=== PATIENT | male | born 1950 | race Caucasian/White ===

== ENCOUNTER → 2019-01-13 | Day surgery (SDC) | payer MEDICARE ==
[~2019-01-13] VITALS: Ht 167.6 cm; Wt 70.8 kg
[~2019-01-13] MED LIST: LIDOCAINE 1% INJ 20 ML 20 ML VIAL ONE
--- OUTSIDE RECORDS SUMMARY | 2019-01-13 12:57 | XMS REPORT | CCD ---
Author Author KRYSTIN HERNANDEZ Unknown Address [address] [facility] [address] [place] [address] Care Team Providers Care Rubber Curer Name Role Phone CHANDA BENZ, JENIFER Mandujano Attphys CHANDA BENZ, JENIFER Mandujano Prisurg Allergies Allergy Code Allergy Type Reaction Status SULFA (sulfonamide) 0 Drug allergy Active Active Medications Medication Code Dose Units Frequency Route Modification Start Date/Time Januvia 25MG Oral Tablet 049953 1 TABLET BY MOUTH 04/13/2018 09:42 Prescription Detail 1 TABLET BY MOUTH Acetaminophen 650MG Oral Tablet [id number] 650 MILLIGRAMS NEEDED EVERY 4 HR ORAL 04/13/2018 09 :40 Prescription Detail 650 MILLIGRAMS ORAL NEEDED EVERY 4 HR amLODIPine Besylate 5MG Oral Tablet 458388 10 MILLIGRAMS DAILY BY MOUTH 04/13/2018 09:40 Prescription Detail 10 MILLIGRAMS BY MOUTH DAILY Aspirin 81MG Oral Tablet, Enteric Coated 768821 81 MILLIGRAMS DAILY ORAL 04/13/2018 09:40 Prescription Detail 81 MILLIGRAMS ORAL DAILY Coreg 6.25MG Oral Tablet 776604 6.25 MILLIGRAMS TWO TIMES A DAY ORAL 04/13/2018 09:40 Prescription Detail 6.25 MILLIGRAMS ORAL TWO TIMES A DAY Daily Multivitamin Oral Tablet 2482038 1 EACH DAILY ORAL 04/13/2018 09:40 Prescription Detail 1 EACH ORAL DAILY Iron 27 MG Oral Tablet 158338 27 MG DAILY ORAL 04/13/2018 09:40 Prescription Detail 27 MG ORAL DAILY Lasix 80MG Oral Tablet 220740 80 MILLIGRAMS DAILY ORAL 04/13/2018 09:40 Prescription Detail 80 MILLIGRAMS ORAL DAILY Lipitor 80MG Oral Tablet 206889 80 MILLIGRAMS DAILY ORAL 04/13/2018 09:40 Prescription Detail 80 MILLIGRAMS ORAL DAILY Lyrica 75MG Oral Capsule 073851 75 MILLIGRAMS DAILY BY MOUTH 04/13/2018 09:40 Prescription Detail 75 MILLIGRAMS BY MOUTH DAILY Lovilia 5MG-325MG Oral Tablet 093111 1 EACH NEEDED EVERY 12 H ORAL 04/13/2018 09:40 Prescription Detail 1 EACH ORAL NEEDED EVERY 12 H PhosLo 667MG Oral Capsule 827401 2755 MILLIGRAMS BEFORE EACH MEAL ORAL 04/13/2018 09:40 Prescription Detail 1334 MILLIGRAMS ORAL BEFORE EACH MEAL Protonix 40MG Oral Tablet, Enteric Coated 024292 40 MILLIGRAMS TWO TIMES A DAY BY MOUTH 04/13/2018 09: 40 Prescription Detail 40 MILLIGRAMS BY MOUTH TWO TIMES A DAY Problems Problem Code Start Date Resolved Date Status Weakness in extremity 172196771 04/06/2018 Active CVA 701122790 12/29/2016 Active Seizures 36016471 12/29/2016 Active Diabetes 58002080 12/30/2016 Active Procedures Procedure Code Procedure Type Date ^CBC W/AUTO DIFF 0250091 SNOMED CT 07/01/2017 COMPREHENSIVE METABOLIC PANEL 352831125 SNOMED CT 2016 CBC W/ AUTO DIFF (RFLX MAN DIFF IF IND) 5312892 SNOMED CT 07/01/2017 BEDSIDE GLUCOSE 80273635 SNOMED CT 07/01/2017 Results BEDSIDE GLUCOSE - Collect Date/Time: 07/01/2017 15:16 Test Name Code Test Result Test Units Test Ref Range GLUCOSE POCT 347 MG/DL L=70 H=100 COMPREHENSIVE METABOLIC PANEL - Collect Date/Time: 07/01/2017 16:00 Test Name Code Test Result Test Units Test Ref Range GLUCOSE 2345-7 398 MG/DL L=70 H=100 SODIUM 2951-2 139 MEQ/L L=135 H=148 POTASSIUM 2823-3 3.6 MEQ/L L=3.5 H=5.3 CHLORIDE 2075-0 103 MEQ/L L=96 H=110 CO2 2028-9 29 MEQ/L L=22 H=29 BUN 3094-0 29 MG/DL L=8 H=22 CREATININE 2160-0 1.4 MG/DL L=0.6 H=1.6 SGOT/AST 1920-8 15 IU/L L=10 H=40 SGPT/ALT 1742-6 15 IU/L L=8 H=54 ALK PHOS 6768-6 120 IU/L L=35 H=115 TOTAL PROTEIN 2885-2 5.8 G/DL L=5.5 H=8.5 ALBUMIN 1751-7 2.4 G/DL L=3.1 H=5.4 TOTAL BILI 1975-2 <0.3 MG/DL L=0.0 H=1.5 CALCIUM 36952-6 8.8 MG/DL L=8.2 H=10.6 AGE 67 yrs GFR NonAA 51 GFR AA 62 eGFR 51 mL/min/1.7 eGFR AA* >60 N/A CBC W/ AUTO DIFF (RFLX MAN DIFF IF IND) - Collect Date/Time: 07/01/2017 16:00 Test Name Code Test Result Test Units Test Ref Range WBC 02273-3 8.7 TH/CMM L=4.5 H=10.8 RBC 789-8 4.63 ML/CMM L=4.70 H=6.10 HGB 718-7 13.2 G/DL L=14.0 H=18.0 HCT 4544-3 38.8 % L=42.0 H=52.0 MCV 84 FL L=81 H=99 MCH 28.5 PG L=27.0 H=33.0 MCHC 34.0 G/DL L=31.0 H=36.0 RDW SD 38 FL L=36 H=50 RDW CV 12.8 % L=0.0 H=14.8 MPV 9.9 FL L=9.3 H=12.5 PLT 777-3 331 TH/CMM L=130 H=440 NRBC# 0.00 TH/CMM L=0.00 H=0.00 NRBC% 0.0 /100WBC L=0.0 H=2.0 %NEUT 69.3 % %LYMP 22.5 % %MONO 5.3 % %EOS 1.5 % %BASO 1.1 % #NEUT 6.02 TH/CMM L=2.10 H=8.20 #LYMP 1.96 TH/CMM L=0.90 H=5.20 #MONO 0.46 TH/CMM L=0.16 H=1.00 #EOS 0.13 TH/CMM L=0.00 H=0.80 #BASO 0.10 TH/CMM L=0.00 H=0.20 MANUAL DIFF NOT IND N/A Function Status Unknown or Not Available. History of Immunizations Immunization Code Date pneumococcal polysaccharide PPV23 33 01/07/2018 Plan of Treatment Unknown or Not Available. Social History Smoking Status Code Start Date End Date Current every day smoker [id number] Vital Signs Unknown or Not Available. Function Status Unknown or Not Available. Goals Unknown or Not Available. ASSESSMENTS Unknown or Not Available. Health Concerns Section Unknown or Not Available.
--- OUTSIDE RECORDS SUMMARY | 2019-01-13 12:57 | XMS REPORT | CCD ---
Author Author FRIEDA DOWNS Unknown Address [address] [place] [address] Care Team Providers Care Leadership Development Instructor Name Role Phone NACHO Zapata, STEPHAN FLORES Attphys KRISTOFER ROCHA, CELSA BENZ Prisukary S., MIL Greer NASST A., KEMI NASST F., JENIFER NASST S., AUSTIN Grossman NASST A., DELBERT FELIX NASST H., DANISH NASST T., PAT NASST Allergies Allergy Code Allergy Type Reaction Status SULFA (sulfonamide) 0 Drug allergy Active Active Medications Medication Code Dose Units Frequency Route Modification Start Date/Time Aspirin 325MG Oral Tablet, Enteric Coated 674906 325 MILLIGRAMS DAILY WITH A MEAL BY MOUTH 12/30/2016 15:13 Prescription Detail 325 MILLIGRAMS BY MOUTH DAILY WITH A MEAL Atorvastatin Calcium 20MG Oral Tablet 526462 80 MILLIGRAMS BEDTIME BY MOUTH 12/30/2016 15:13 Prescription Detail 80 MILLIGRAMS BY MOUTH BEDTIME Lisinopril 10MG Oral Tablet 404659 10 MILLIGRAMS DAILY BY MOUTH 12/30/2016 15:13 Prescription Detail 10 MILLIGRAMS BY MOUTH DAILY metFORMIN HCl 1000MG Oral Tablet 183693 5502 MILLIGRAMS TWO TIMES A DAY ORAL 12/30/2016 15:13 Prescription Detail 1000 MILLIGRAMS ORAL TWO TIMES A DAY Problems Problem Code Start Date Resolved Date Status CVA 570158942 12/29/2016 Active Seizures 94385353 12/29/2016 Active Diabetes 88474974 12/30/2016 Active Procedures Procedure Code Procedure Type Date MRI BRAIN INC STEM W/O CONTRAST 42270057 SNOMED CT 2016 US ECHO 2D COMP WITH DOPP AND COLOR 32670831 [facility] US CAROTID DUPLEX COMP/TONYA 02333990 [facility] CT 12/30/2016 CT HEAD W/O CONTRAST 650445206 [facility] CT 12/29/2016 BEDSIDE GLUCOSE 50487710 [facility] CT 12/30/2016 LIPID PANEL 81669116 [facility] CT 12/30/2016 HEMOGLOBIN A1C 44318066 [facility] CT 12/30/2016 COMPREHENSIVE METABOLIC PANEL 108496778 [facility] 2016 CBC W/ AUTO DIFF (RFLX MAN DIFF IF IND) 6971903 [facility] CT 12/30/2016 BEDSIDE GLUCOSE 52079986 [facility] CT 12/30/2016 TROPONIN-I ADV 229309689 [facility] CT 12/29/2016 COMPREHENSIVE METABOLIC PANEL 050956155 [facility] CT 2016 CBC W/ AUTO DIFF (RFLX MAN DIFF IF IND) 2555546 [facility] CT 12/29/2016 SP EVALUATE SWALLOWING FUNCTION 796923936 [facility] CT 2016 PT EVALUATION; LOW [id number] [facility] CT 12/30/2016 OT EVAL; LOW [id number] [facility] CT 12/30/2016 ^CBC W/AUTO DIFF 4397294 [facility] CT 12/30/2016 ^CBC W/AUTO DIFF 8662880 [facility] CT 12/29/2016 ^EEG AWAKE & DROWSY [id number] [facility] CT 12/30/2016 Results BEDSIDE GLUCOSE - Collect Date/Time: 12/30/2016 12:07 Test Name Code Test Result Test Units Test Ref Range GLUCOSE POCT 243 MG/DL L=70 H=100 BEDSIDE GLUCOSE - Collect Date/Time: 12/30/2016 05:30 Test Name Code Test Result Test Units Test Ref Range GLUCOSE POCT 221 MG/DL L=70 H=100 COMPREHENSIVE METABOLIC PANEL - Collect Date/Time: 12/30/2016 12:15 Test Name Code Test Result Test Units Test Ref Range GLUCOSE 2345-7 224 MG/DL L=70 H=100 SODIUM 2951-2 136 MEQ/L L=135 H=148 POTASSIUM 2823-3 4.0 MEQ/L L=3.5 H=5.3 CHLORIDE 2075-0 103 MEQ/L L=96 H=110 CO2 2028-9 24 MEQ/L L=22 H=29 BUN 3094-0 37 MG/DL L=8 H=22 CREATININE 2160-0 1.1 MG/DL L=0.6 H=1.6 SGOT/AST 1920-8 15 IU/L L=10 H=40 SGPT/ALT 1742-6 15 IU/L L=8 H=54 ALK PHOS 6768-6 122 IU/L L=35 H=115 TOTAL PROTEIN 2885-2 6.2 G/DL L=5.5 H=8.5 ALBUMIN 1751-7 2.7 G/DL L=3.1 H=5.4 TOTAL BILI 1975-2 0.2 MG/DL L=0.0 H=1.5 CALCIUM 02063-4 9.0 MG/DL L=8.2 H=10.6 AGE [birth year]-[age] yrs GFR NonAA 45821-7 67 [place] [address]-3 81 eGFR 32340-1 >60 N/A eGFR AA* 37457-3 >60 N/A COMPREHENSIVE METABOLIC PANEL - Collect Date/Time: 12/29/2016 19:15 Test Name Code Test Result Test Units Test Ref Range GLUCOSE 2345-7 246 MG/DL L=70 H=100 SODIUM 2951-2 136 MEQ/L L=135 H=148 POTASSIUM 2823-3 4.2 MEQ/L L=3.5 H=5.3 CHLORIDE 2075-0 99 MEQ/L L=96 H=110 CO2 2028-9 24 MEQ/L L=22 H=29 BUN 3094-0 47 MG/DL L=8 H=22 CREATININE 2160-0 1.5 MG/DL L=0.6 H=1.6 SGOT/AST 1920-8 13 IU/L L=10 H=40 SGPT/ALT 1742-6 15 IU/L L=8 H=54 ALK PHOS 6768-6 103 IU/L L=35 H=115 TOTAL PROTEIN 2885-2 6.3 G/DL L=5.5 H=8.5 ALBUMIN 1751-7 2.9 G/DL L=3.1 H=5.4 TOTAL BILI 1975-2 0.2 MG/DL L=0.0 H=1.5 CALCIUM 46921-1 9.1 MG/DL L=8.2 H=10.6 AGE 66 yrs GFR NonAA 47 GFR AA 57 eGFR 47 mL/min/1.7 eGFR AA* 57 mL/min/1.7 LIPID PANEL - Collect Date/Time: 12/30/2016 12:15 Test Name Code Test Result Test Units Test Ref Range TRIGLYCERIDES 3043-7 385 MG/DL L=0 H=135 CHOLESTEROL 2093-3 219 MG/DL L=0 H=199 HDL 2085-9 37 MG/DL L=27 H=67 TOT CHOL/HDL 52501-3 5.9 L=0.0 H=5.0 LDL (CALC) 61419-1 105 MG/DL L=0 H=129 CBC W/ AUTO DIFF (RFLX MAN DIFF IF IND) - Collect Date/Time: 12/30/2016 12:15 Test Name Code Test Result Test Units Test Ref Range WBC 14254-4 7.9 TH/CMM L=4.5 H=10.8 RBC 789-8 4.65 ML/CMM L=4.70 H=6.10 HGB 718-7 13.6 G/DL L=14.0 H=18.0 HCT 4544-3 40.8 % L=42.0 H=52.0 MCV 69525-0 88 FL L=81 H=99 MCH 74877-3 29.2 PG L=27.0 H=33.0 MCHC 17776-6 33.3 G/DL L=31.0 H=36[place] [address]-3 40 FL L=36 H=50 [place] [address]-4 12.4 % L=0.0 H=14.8 MPV 18349-0 9.7 FL L=9.3 H=12.5 PLT 777-3 380 TH/CMM L=130 H=440 NRBC# 09066-9 0.00 TH/CMM L=0.00 H=0.00 NRBC% 04392-2 0.0 /100WBC L=0.0 H=2.0 %NEUT 66140-6 67.7 % %LYMP 85056-5 25.1 % %MONO 96030-3 4.1 % %EOS 48057-0 1.6 % %BASO 60275-2 1.0 % #NEUT 77396-3 5.34 TH/CMM L=2.10 H=8.20 #LYMP 86501-8 1.98 TH/CMM L=0.90 H=5.20 #MONO 93069-2 0.32 TH/CMM L=0.16 H=1.00 #EOS 61064-9 0.13 TH/CMM L=0.00 H=0.80 #BASO 94042-6 0.08 TH/CMM L=0.00 H=0.20 MANUAL DIFF 05597-7 NOT IND N/A CBC W/ AUTO DIFF (RFLX MAN DIFF IF IND) - Collect Date/Time: 12/29/2016 19:15 Test Name Code Test Result Test Units Test Ref Range WBC 83326-8 10.7 TH/CMM L=4.5 H=10.8 RBC 789-8 4.83 ML/CMM L=4.70 H=6.10 HGB 718-7 14.0 G/DL L=14.0 H=18.0 HCT 4544-3 41.6 % L=42.0 H=52.0 MCV 86 FL L=81 H=99 MCH 29.0 PG L=27.0 H=33.0 MCHC 33.7 G/DL L=31.0 H=36.0 RDW SD 39 FL L=36 H=50 RDW CV 12.5 % L=0.0 H=14.8 MPV 9.9 FL L=9.3 H=12.5 PLT 777-3 402 TH/CMM L=130 H=440 NRBC# 0.00 TH/CMM L=0.00 H=0.00 NRBC% 0.0 /100WBC L=0.0 H=2.0 %NEUT 65.8 % %LYMP 26.5 % %MONO 5.0 % %EOS 1.5 % %BASO 0.7 % #NEUT 7.04 TH/CMM L=2.10 H=8.20 #LYMP 2.83 TH/CMM L=0.90 H=5.20 #MONO 0.53 TH/CMM L=0.16 H=1.00 #EOS 0.16 TH/CMM L=0.00 H=0.80 #BASO 0.07 TH/CMM L=0.00 H=0.20 MANUAL DIFF NOT IND N/A PT/PTT - Collect Date/Time: 12/29/2016 19:15 Test Name Code Test Result Test Units Test Ref Range PROTIME 5964-2 10.0 SEC L=9.9 H=11.9 INR 98554-4 0.9 PTT 3173-2 26.0 SEC L=22.2 H=37.2 HEMOGLOBIN A1C - Collect Date/Time: 12/30/2016 12:15 Test Name Code Test Result Test Units Test Ref Range HGB A1C 77940-7 >14.0 % L=4.0 H=6.4 Est Avg Glucose 94815-1 395.3 mg/dL TROPONIN-I ADV - Collect Date/Time: 12/29/2016 19:15 Test Name Code Test Result Test Units [place] [address]-4 <0.04 ng/mL L=0.04 H= 0.40 Function Status Unknown or Not Available. History of Immunizations Unknown or Not Available. Plan of Treatment Unknown or Not Available. Social History Smoking Status Code Start Date End Date Current every day smoker 413016918 Vital Signs Vital Sign Value Unit Date/Time Recent/Initial? BMI (Body Mass Index) 21.92 kg/m2 12/29/2016 21:15 Initial VS Weight Measured 135.8 [lb_av] 12/29/2016 21:15 Initial VS Height 66 [in_i] 12/29/2016 21:15 Initial VS BSA (Body Surface Area) 1.69 m2 12/29/2016 21:15 Initial VS BP Systolic 157 mm[Hg] 12/29/2016 21:15 Initial VS BP Diastolic 85 mm[Hg] 12/29/2016 21:15 Initial VS Respiratory Rate 18 /min 12/29/2016 21:15 Initial VS Heart Rate 94 /min 12/29/2016 21:15 Initial VS O2 % BldC Oximetry 100 % 12/29/2016 21:15 Initial VS Body Temperature 97.2 [degF] 12/29/2016 21:15 Initial VS BP Systolic 143 mm[Hg] 12/30/2016 10:54 Most Recent VS BP Diastolic 83 mm[Hg] 12/30/2016 10:54 Most Recent VS Respiratory Rate 18 /min 12/30/2016 10:54 Most Recent VS Heart Rate 87 /min 12/30/2016 10:54 Most Recent VS O2 % BldC Oximetry 99 % 12/30/2016 10:54 Most Recent VS Body Temperature 96.9 [degF] 12/30/2016 10:54 Most Recent VS Function Status Unknown or Not Available. Goals Unknown or Not Available. ASSESSMENTS Unknown or Not Available. Health Concerns Section Unknown or Not Available.
--- OUTSIDE RECORDS SUMMARY | 2019-01-13 12:58 | XMS REPORT ---
Author Author Dusty Hill [facility] Address [address] [place] [id number] Care Team Providers Care Mushroom Cutter Name Role Phone Dusty Hill PCP Dusty Hill PreferredProvider Allergies and Adverse Reactions Name Reaction Notes SULFA (SULFONAMIDES) Plan of Treatment Planned Activity Comments Planned Date Planned Time Plan/Goal CMP 04/19/2018 12:00 AM Vitamin B12 04/19/2018 12:00 AM Iron measurement 04/19/2018 12:00 AM Chest PA and Lateral - Main 12/15/2018 12:00 AM Medications Active Name Start Date Estimated Completion Date SIG Comments PhosLo oral give 1334mg by mouth w/meals for NA aspirin 81 mg oral tablet,delayed release (DR/EC) take 1 tablet (81 mg) by oral route once daily Humalog U-100 Insulin 100 unit/mL subcutaneous solution 05/19/2018 USE PER SLIDING SCALE ferrous gluconate 236 mg (27 mg iron) oral tablet take 1 tablet by oral route daily bumetanide 2 mg oral tablet 07/13/2018 TAKE 1 TABLET BY MOUTH THREE TIMES DAILY metolazone 5 mg oral tablet 07/13/2018 TAKE 1 TABLET BY MOUTH EVERY MORNING calcium acetate 667 mg oral tablet 09/03/2018 TAKE 2 TABLETS BY MOUTH THREE TIMES DAILY WITH MEALS atorvastatin 80 mg oral tablet 09/03/2018 TAKE 1 TABLET BY MOUTH AT BEDTIME carvedilol 25 mg oral tablet 09/03/2018 TAKE 1 TABLET BY MOUTH TWICE DAILY atorvastatin 40 mg oral tablet 09/24/2018 TAKE 1 TABLET BY MOUTH AT BEDTIME citalopram 10 mg oral tablet 09/24/2018 TAKE 1 TABLET BY MOUTH IN THE MORNING clopidogrel 75 mg oral tablet 09/24/2018 TAKE 1 TABLET BY MOUTH IN THE MORNING amlodipine 2.5 mg oral tablet 09/24/2018 TAKE 1 TABLET BY MOUTH EVERY MORNING pantoprazole 40 mg oral tablet,delayed release (DR/EC) 09/24/2018 TAKE 1 TABLET BY MOUTH TWICE DAILY Januvia 50 mg oral tablet 09/24/2018 TAKE 1/2 TABLET (25MG) BY MOUTH EVERY MORNING calcium acetate 667 mg oral capsule 09/24/2018 TAKE 2 CAPSULES BY MOUTH THREE TIMES DAILY WITH MEALS Zofran 4 mg oral tablet 10/19/2018 take 1 tablet every 8hr as needed for n/ v [place] 7.5-325 mg oral tablet 10/21/2018 take 1 tablet by oral route every 6 hours as needed for pain Dexilant 60 mg oral capsule,biphase delayed releas take 1 capsule (60 mg ) by oral route once daily Levemir U-100 Insulin 100 unit/mL subcutaneous solution 11/12/2018 INJECT 10 UNITS SUBCUTANEOUS AT BEDTIME Lyrica 75 mg oral capsule 11/22/2018 TAKE 1 CAPSULE BY MOUTH EVERY MORNING Name Start Date Expiration Date SIG Comments pioglitazone 30 mg oral tablet 08/14/2017 Levemir 100 unit/mL subcutaneous solution 08/13/2017 09/12/2017 inject by subcutaneous route per prescriber's instructions. Insulin dosing requires individualization. for 30 days amoxicillin 500 mg oral capsule 06/25/2018 07/02/2018 take 1 capsule (500 mg ) by oral route every 12 hours for 7 days Discontinued Name Start Date Discontinued Date SIG Comments glimepiride 2 mg oral tablet 08/14/2017 04/19/2018 gabapentin 100 mg oral capsule 07/01/2017 04/19/2018 lisinopril 10 mg oral tablet 12/30/2016 04/19/2018 Coreg 12.5 mg oral tablet 04/19/2018 take 1 tablet (12.5 mg) by oral route 2 times per day with food Humalog U-100 Insulin 100 unit/mL subcutaneous solution 04/19/2018 inject by subcutaneous route per sliding scale Lasix 80 mg oral tablet 04/19/2018 take 1 tablet (80 mg) by oral route 2 times per day carvedilol 12.5 mg oral tablet 02/22/2018 04/19/2018 TAKE 1 TABLET BY MOUTH TWICE DAILY WITH MEALS calcium acetate 667 mg oral capsule 03/22/2018 04/19/2018 TAKE 2 CAPSULES BY MOUTH THREE TIMES DAILY WITH MEALS metformin 1,000 mg oral tablet 03/22/2018 05/27/2018 TAKE 1 TABLET BY MOUTH DAILY furosemide 80 mg oral tablet 04/16/2018 05/27/2018 TAKE 1 TABLET BY MOUTH DAILY amlodipine 10 mg oral tablet 04/16/2018 05/27/2018 TAKE 1 TABLET BY MOUTH DAILY on 2.5mg carvedilol 6.25 mg oral tablet 04/16/2018 05/27/2018 TAKE 1 TABLET BY MOUTH TWICE DAILY Problem List Description Status Onset Mixed hyperlipidemia Active 08/27/2017 Essential hypertension Active 08/27/2017 Diabetes mellitus due to underlying condition with hyperglycemia, with long- term current use of insulin Active 08/27/2017 History of MD (myocardial infarction) Active 08/27/2017 Smoker Active 08/27/2017 Vital Signs Date Time BP-Sys(mm[Hg] BP-Polly(mm[Hg]) HR(bpm) RR(rpm) Temp WT HT HC BMI BSA BMI Percentile O2 Sat(%) 12/09/2018 4:01:00 PM 112 mmHg 58 mmHg 75 bpm 20 rpm 98.2 F 154.125 lbs 66 in 24.8762 kg/m 1.8043 m 84 % 10/21/2018 8:13:00 AM 130 mmHg 82 mmHg 80 bpm 18 rpm 98.1 F 149.375 lbs 66 in 24.11 kg/m2 1.78 m2 96 % 07/28/2018 8:25:00 AM 136 mmHg 64 mmHg 70 bpm 16 rpm 97.9 F 169 lbs 66 in 27.277 kg/m 1.8894 m 98 % 06/25/2018 10:42:00 AM 122 mmHg 60 mmHg 70 bpm 16 rpm 98.1 F 161 lbs 66 in 25.99 kg/m2 1.84 m2 97 % 05/27/2018 10:30:00 AM 118 mmHg 74 mmHg 66 bpm 18 rpm 98.6 F 155.25 lbs 63 in 27.501 kg/m 1.7692 m 99 % 04/19/2018 10:22:00 AM 128 mmHg 70 mmHg 71 bpm 18 rpm 98.8 F 159 lbs 63 in 28.17 kg/m2 1.79 m2 97 % 02/10/2018 10:59:00 AM 130 mmHg 62 mmHg 78 bpm 18 rpm 97.9 F 63 in 95 % 02/03/2018 10:23:00 AM 110 mmHg 64 mmHg 67 bpm 16 rpm 97.9 F 138 lbs 63 in 24.4454 kg/m 1.6681 m 94 % 08/13/2017 2:49:00 PM 124 mmHg 80 mmHg 80 bpm 16 rpm 98 F 245 lbs 63 in 43.40 kg/m2 2.22 m2 98 % Social History Name Description Comments Tobacco Current every day smoker Alcohol Former Uses seatbelts History of Procedures Date Ordered Description Order Status 02/03/2018 12:00 AM COMPLETE CBC W/AUTO DIFF WBC Returned 02/03/2018 12:00 AM COMPREHEN METABOLIC PANEL Returned 02/03/2018 12:00 AM CHEST X-RAY 2VW FRONTAL&LATL Returned 02/22/2018 12:00 AM HEMATOCRIT Returned 02/22/2018 12:00 AM HEMOGLOBIN Returned 02/24/2018 12:00 AM COMPLETE CBC W/AUTO DIFF WBC Returned 02/24/2018 12:00 AM COMPREHEN METABOLIC PANEL Returned 04/19/2018 12:00 AM COMPLETE CBC W/AUTO DIFF WBC Returned 05/27/2018 12:00 AM COMPLETE CBC W/AUTO DIFF WBC Returned 05/27/2018 12:00 AM COMPREHEN METABOLIC PANEL Returned 05/27/2018 12:00 AM ASSAY OF NATRIURETIC PEPTIDE Returned Results Summary Not available. History Of Immunizations Not available. 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 Aug 13 2017 2:49PM Smoker Aug 13 2017 2:49PM Noncompliance w/medication treatment due to intermit use of medication Aug 13 2017 2:49PM Mixed hyperlipidemia Aug 13 2017 2:49PM Type 2 diabetes mellitus with other specified complication Aug 13 2017 2: 49PM Hyperlipidemia, unspecified Aug 13 2017 2:49PM Essential hypertension Aug 13 2017 2:49PM History of MD (myocardial infarction) Aug 13 2017 2:49PM Chronic systolic heart failure Feb 03 2018 10:28AM Kidney failure Feb 03 2018 10:28AM Chronic systolic heart failure Feb 10 2018 11:03AM Stage 3 chronic kidney disease Feb 10 2018 11:03AM Anemia Feb 22 2018 1:28PM Anemia Feb 24 2018 12:14PM Fatigue Feb 24 2018 12:14PM Anemia Apr 19 2018 10:23AM Stage 4 chronic kidney disease Apr 19 2018 10:23AM Renal failure May 27 2018 10:33AM Congestive heart failure May 27 2018 10:33AM Chronic pain May 27 2018 10:33AM Anemia May 27 2018 10:33AM Acute suppurative otitis media of both ears without spontaneous rupture of tympanic membranes, recurrence not specified Jun 25 2018 10:45AM Chronic systolic heart failure Jul 28 2018 8:28AM Low Back Pain Oct 21 2018 8:15AM Chronic pain Oct 21 2018 8:15AM End stage renal disease Oct 21 2018 8:15AM Dependence on renal dialysis Oct 21 2018 8:15AM ESRD (end stage renal disease) Dec 09 2018 4:05PM Pneumonia Dec 15 2018 11:43AM Payers Insurance Name Company Name Plan Name Plan Number Policy Number Policy Group Number Start Date Medicare RHC Medicare RHC [id number] Thursday, 2015 [place] [employer] - RHC [place] [employer] - RHC [id number] N/A [place] [employer] [place] [employer] [id number] N/A Medicare Part B Medicare Of [place] [id number] N/A Medicare RHC Medicare RHC [id number] N/A Medicare Part A Medicare - Lab/Xray [id number] N/A Medicare Part B Medicare Of [place] [id number] N/A History of Encounters Visit Date Visit Type Provider 12/09/2018 Office visit Dusty Hill MD 10/21/2018 Office visit Dusty Hill MD 07/28/2018 Office visit Dusty Hill MD 06/25/2018 Office visit Dusty Hill MD 05/27/2018 Office visit Dusty Hill MD 04/26/2018 [facility] DO 04/24/2018 [facility] DO 04/24/2018 Hospital Swapna Ferguson MD 04/19/2018 Office visit Dusty Hill MD 04/10/2018 [facility] Swapna Ferguson MD 04/10/2018 [facility] Margot [facility]07[facility]2018 [facility] Swapna Ferguson MD 02/26/2018 [facility] Swapna Ferguson MD 02/10/2018 Office visit Dusty Hill MD 02/09/2018 [facility] Swapna Ferguson MD 02/03/2018 Office visit Dusty Hill MD 01/20/2018 [facility] Swapna Ferguson MD 01/08/2018 [facility] Matt Chappell MD 08/13/2017 Office visit MARK JACKSON 07/25/2017 [facility] Swapna Ferguson MD 12/30/2016 [facility] Ermias Dooley MD 12/29/2016 [facility] Swapna Ferguson MD
--- OUTSIDE RECORDS SUMMARY | 2019-01-13 12:58 | XMS REPORT ---
Author Brenden Kendrick Organization [facility] Address [address] [place] [id number] Care Team Providers Care Gift Packer Name Role Phone Brenden Frost PCP Dusty Hill PreferredProvider Allergies and Adverse Reactions Name Reaction Notes SULFA (SULFONAMIDES) Plan of Treatment Planned Activity Comments Planned Date Planned Time Plan/Goal CMP 04/19/2018 12:00 AM Vitamin B12 04/19/2018 12:00 AM Iron measurement 04/19/2018 12:00 AM Medications Active Name Start Date Estimated Completion Date SIG Comments aspirin 81 mg oral tablet,delayed release (DR/EC) take 1 tablet (81 mg) by oral route once daily Humalog U-100 Insulin 100 unit/mL subcutaneous solution 05/19/2018 USE PER SLIDING SCALE bumetanide 2 mg oral tablet 07/13/2018 TAKE 1 TABLET BY MOUTH THREE TIMES DAILY atorvastatin 40 mg oral tablet 09/24/2018 [...] every 8hr as needed for n/ v Dexilant 60 mg oral capsule,biphase delayed releas take 1 capsule (60 mg ) by oral route once daily Levemir U-100 Insulin 100 unit/mL subcutaneous solution 11/12/2018 INJECT 10 UNITS SUBCUTANEOUS AT BEDTIME Lyrica 75 mg oral capsule 11/22/2018 TAKE 1 CAPSULE BY MOUTH EVERY MORNING MagOx 400 mg (241.3 mg magnesium) oral tablet take 1 tablet by oral route daily Vitamins and Minerals oral tablet take 1 tablet by oral route daily Imodium A-D 2 mg oral capsule take 2 capsules (4 mg) by oral route after 1st loose stool, followed by 1 capsule after each subsequent loose stool not to exceed 16 mg/day Golytely 236-22.74-6.74 -5.86 gram oral recon soln 01/04/2019 take as directed Miralax 17 gram/dose oral powder 01/04/2019 mix in gatorade for bowel prep. Name Start Date Expiration Date SIG Comments pioglitazone 30 mg oral tablet 08/14/2017 Levemir 100 unit/mL subcutaneous solution 08/13/2017 09/12/2017 inject by subcutaneous route per prescriber's instructions. Insulin dosing requires individualization. for 30 days PhosLo oral give 1334mg by mouth w/meals for NA ferrous gluconate 236 mg (27 mg iron) oral tablet take 1 tablet by oral route daily amoxicillin 500 mg oral capsule 06/25/2018 07/02/2018 take 1 capsule (500 mg ) by oral route every 12 hours for 7 days metolazone 5 mg oral tablet 07/13/2018 TAKE 1 TABLET BY MOUTH EVERY MORNING calcium acetate 667 mg oral tablet 09/03/2018 TAKE 2 TABLETS BY MOUTH THREE TIMES DAILY WITH MEALS atorvastatin 80 mg oral tablet 09/03/2018 TAKE 1 TABLET BY MOUTH AT BEDTIME carvedilol 25 mg oral tablet 09/03/2018 TAKE 1 TABLET BY MOUTH TWICE DAILY [place] 7.5-325 mg oral tablet 12/20/2018 take 1 tablet by oral route every 6 hours as needed for pain Discontinued Name Start Date Discontinued Date SIG [...] use of insulin Active 08/27/2017 History of [place] (myocardial infarction) Active 08/27/2017 Smoker Active 08/27/2017 Esophagitis Active 01/04/2019 Duodenitis Active 01/04/2019 Diarrhea Active 01/04/2019 Rectal bleeding Active 01/04/2019 Vital Signs Date Time BP-Sys(mm[Hg] BP-Polly(mm[Hg]) HR(bpm) RR(rpm) Temp WT HT HC BMI BSA BMI Percentile O2 Sat(%) 01/04/2019 12:47:00 PM 94 mmHg 42 mmHg 70 bpm 20 rpm 96.9 F 160 lbs 66 in 25.8244 kg/m 1.8384 m 12/09/2018 4:01:00 PM 112 mmHg 58 mmHg 75 bpm 20 rpm 98.2 F 154.125 lbs 66 in 24.88 kg/m2 1.80 m2 84 % 10/21/2018 8:13:00 AM 130 mmHg [...] 12:00 AM ASSAY OF NATRIURETIC PEPTIDE Returned 12/15/2018 12:00 AM CHEST X-RAY 2VW FRONTAL&LATL Returned Results Summary Not available. History Of Immunizations Not available. History of Past Illness Name Date of Onset Comments Heart Attack Mixed hyperlipidemia 08/27/2017 Essential hypertension 08/27/2017 Diabetes mellitus due to underlying condition with hyperglycemia, with long- term current use of insulin 08/27/2017 History of [place] (myocardial infarction) 08/27/2017 Smoker 08/27/2017 Cardiomyopathy CKD (chronic kidney disease) requiring chronic dialysis Esophagitis 01/04/2019 Duodenitis 01/04/2019 Diarrhea 01/04/2019 Rectal bleeding 01/04/2019 Diabetes mellitus due to underlying condition with diabetic polyneuropathy Aug 13 2017 2:49PM Diabetes mellitus due to underlying condition with hyperglycemia Aug 13 2017 2:49PM 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 Aug 13 2017 2:49PM Smoker Aug 13 2017 2:49PM Noncompliance w/medication treatment due to intermit use of medication Aug 13 2017 2:49PM Mixed hyperlipidemia Aug 13 2017 2:49PM Type 2 diabetes mellitus with other specified complication Aug 13 2017 2: 49PM Hyperlipidemia, unspecified Aug 13 2017 2:49PM Essential hypertension Aug 13 2017 2:49PM History of [place] (myocardial infarction) Aug 13 2017 2:49PM Chronic [...] 2018 4:05PM Pneumonia Dec 15 2018 11:43AM Rectal bleeding Jan 04 2019 12:48PM Diarrhea Jan 04 2019 12:48PM Duodenitis Jan 04 2019 12:48PM Esophagitis Jan 04 2019 12:48PM Payers Insurance Name Company Name Plan Name Plan Number Policy Number Policy Group Number Start Date Medicare RHC Medicare RHC [id number] Thursday, 2015 [facility] [id number] N/A [place] Medical Assistance [facility] Medical Assistance Prog [id number] N/A Medicare Part B Medicare Of [place] [id number] N/A Medicare RHC Medicare RHC [id number] N/A Medicare Part A Medicare - Lab/Xray [id number] N/A Medicare Part B Medicare [place] [id number] N/A History of Encounters Visit Date Visit Type Provider 01/04/2019 Office visit Brenden Frost DO 12/09/2018 Office visit Dusty Hill MD 10/21/2018 Office visit Dusty Hill MD 07/28/2018 Office visit Dusty Hill MD 06/25/2018 Office visit Dusty Hill MD 05/27/2018 Office visit Dusty Hill MD 04/26/2018 [facility] Brenden Frost 04/24/2018 [facility] 04/24/2018 [facility] Swapna Ferguson MD 04/19/2018 Office visit Dusty Hill MD 04/10/2018 [facility] Swapna Ferguson MD 04/10/2018 [facility] Brenden Margot 04/07/2018 [facility] 04/06/2018 [facility] Swapna Ferguson MD 02/26/2018 [facility] Swapna Ferguson MD 02/10/2018 Office visit Dusty Hill MD 02/09/2018 [facility] Swapna Ferguson MD 02/03/2018 Office visit Dusty Hill MD 01/20/2018 [facility] Swapna Ferguson MD 01/08/2018 [facility] Matt Chappell MD 08/13/2017 Office visit MARK JACKSON 07/25/2017 [facility] Swapna Ferguson MD 12/30/2016 [facility] Ermias Dooley MD 12/29/2016 [facility] Swapna Ferguson MD
--- OUTSIDE RECORDS SUMMARY | 2019-01-13 12:58 | XMS REPORT ---
Author Brenden Kendrick Organization [facility] Address [address] [place] [id number] Care Team Providers Care Dry Drug Worker Name Role Phone Brenden Frost PCP Dusty [...] TAKE 1 TABLET BY MOUTH TWICE DAILY [place] 7.5-325 mg oral tablet 12/20/2018 take 1 [...] use of insulin Active 08/27/2017 History of [place] (myocardial infarction) Active 08/27/2017 Smoker Active 08/27/2017 [...] current use of insulin 08/27/2017 History of [place] (myocardial infarction) 08/27/2017 Smoker 08/27/2017 Cardiomyopathy CKD [...] hypertension Aug 13 2017 2:49PM History of [place] (myocardial infarction) Aug 13 2017 2:49PM Chronic [...] Number Start Date Medicare RHC Medicare RHC [id number] Thursday, 2015 [facility] [id number] N/A [place] Medical Assistance [facility] Medical Assistance Prog [id number] N/A Medicare Part B Medicare Of [place] [id number] N/A Medicare RHC Medicare RHC [id number] N/A Medicare Part A Medicare - Lab/Xray [id number] N/A Medicare Part B Medicare [place] [id number] N/A History of Encounters Visit Date Visit Type Provider 01/04/2019 Office visit Brenden Frost DO 12/09/2018 Office visit Dusty Hill MD 10/21/2018 Office visit Dusty Hill MD 07/28/2018 Office visit Dusty Hill MD 06/25/2018 Office visit Dusty Hill MD 05/27/2018 Office visit Dusty Hill MD 04/26/2018 [facility] Brenden Frost 04/24/2018 [facility] 04/24/2018 [facility] Swapna Ferguson MD 04/19/2018 Office visit Dusty Hill MD 04/10/2018 [facility] Swapna Ferguson MD 04/10/2018 [facility] Brenden Margot 04/07/2018 [facility] 04/06/2018 [facility] Swapna Ferguson MD 02/26/2018 [facility] Swapna Ferguson MD 02/10/2018 Office visit Dusty Hill MD 02/09/2018 [facility] Swapna Ferguson MD 02/03/2018 Office visit Dusty Hill MD 01/20/2018 [facility] Swapna Ferguson MD 01/08/2018 [facility] Matt Chappell MD 08/13/2017 Office visit MARK JACKSON 07/25/2017 [facility] Swapna Ferguson MD 12/30/2016 [facility] Ermias Dooley MD 12/29/2016 [facility] Swapna Ferguson MD
--- OUTSIDE RECORDS SUMMARY | 2019-01-13 12:59 | XMS REPORT ---
Author Author Dusty Hill [facility] Address [address] [place] [id number] Care Team Providers Care Iap Displays Analyst Name Role Phone Dusty Hill PCP Dusty [...] every 8hr as needed for n/ v [place] 7.5-325 mg oral tablet 10/21/2018 take 1 [...] use of insulin Active 08/27/2017 History of [place] (myocardial infarction) Active 08/27/2017 Smoker Active 08/27/2017 [...] current use of insulin 08/27/2017 History of [place] (myocardial infarction) 08/27/2017 Smoker 08/27/2017 Cardiomyopathy Diabetes mellitus due to underlying condition with diabetic polyneuropathy Aug 13 2017 2:49PM Diabetes mellitus due to underlying condition with hyperglycemia Aug 13 2017 2:49PM intermediate (current) use of insulin Aug 13 2017 2:49PM Smoker Aug 13 2017 2:49PM Noncompliance w/medication treatment due to intermit use of medication Aug 13 2017 2:49PM Mixed hyperlipidemia Aug 13 2017 2:49PM Type 2 diabetes mellitus with other specified complication Aug 13 2017 2: 49PM Hyperlipidemia, unspecified Aug 13 2017 2:49PM Essential hypertension Aug 13 2017 2:49PM History of [place] (myocardial infarction) Aug 13 2017 2:49PM Chronic [...] stage renal disease) Dec 09 2018 4:05PM Payers Insurance Name Company Name Plan Name Plan Number Policy Number Policy Group Number Start Date Medicare RHC Medicare RHC [id number] Thursday, 2015 [place] [employer] Prog - RHC [place] [employer] Prog - [facility] [id number] N/A [place] Medical Assistance Program [place] Medical Assistance Prog [id number] N/A Medicare Part B Medicare Of [place] [id number] N/A Medicare RHC Medicare RHC [id number] N/A Medicare Part A Medicare - Lab/Xray [id number] N/A Medicare Part B Medicare Of [place] [id number] N/A History of Encounters Visit Date Visit Type Provider 12/09/2018 Office visit Dusty Hill MD 10/21/2018 Office visit Dusty Hill MD 07/28/2018 Office visit Dusty Hill MD 06/25/2018 Office visit Dusty Hill MD 05/27/2018 Office visit Dusty Hill MD 04/26/2018 [facility] DO 04/24/2018 [facility] 04/24/2018 Hospital Swapna Ferguson MD 04/19/2018 Office visit Dusty Hill MD 04/10/2018 Hospital Swapna Ferguson MD 04/10/2018 [facility] 04/07/2018 [facility] 04/06/2018 [facility] Swapna Ferguson MD 02/26/2018 Hospital Swapna Ferguson MD 02/10/2018 Office visit Dusty Hill MD 02/09/2018 [facility] Swapna Ferguson MD 02/03/2018 Office visit Dusty Hill MD 01/20/2018 [facility] Swapna Ferguson MD 01/08/2018 [facility] Matt Chappell MD 08/13/2017 Office visit MARK JACKSON 07/25/2017 [facility] Swapna Ferguson MD 12/30/2016 [facility] Ermias Dooley MD 12/29/2016 [facility] Swapna Ferguson MD
--- OUTSIDE RECORDS SUMMARY | 2019-01-13 12:59 | XMS REPORT ---
Author Author Dusty Hill [facility] Address [address] [place], [place] [id number] Care Team Providers Care Fixer Boarding Room Name Role Phone Dusty Hill PCP Dusty Hill PreferredProvider Allergies and Adverse Reactions Name Reaction Notes SULFA (SULFONAMIDES) Plan of Treatment Planned Activity Comments Planned Date Planned Time Plan/Goal CBC With Auto Differential 04/19/2018 12:00 AM CMP 04/19/2018 12:00 AM Vitamin B12 04/19/2018 12:00 AM Iron measurement 04/19/2018 12:00 AM Medications Active Name Start Date Estimated Completion Date SIG Comments PhosLo oral give 1334mg by mouth w/meals for NA aspirin 81 mg oral tablet,delayed release (DR/EC) take 1 tablet (81 mg) by oral route once daily Levemir U-100 Insulin 100 unit/mL subcutaneous solution 05/19/2018 INJECT 15 UNITS SUBCUTANEOUS AT BEDTIME Humalog U-100 Insulin 100 unit/mL subcutaneous solution 05/19/2018 USE PER SLIDING SCALE ferrous gluconate 236 mg (27 mg iron) oral tablet take 1 tablet by oral route daily [place] 5-325 mg oral tablet 05/27/2018 One PO BID, and q 4 hours prn Januvia 50 mg oral tablet 06/11/2018 TAKE 1/2 TABLET BY MOUTH EVERY MORNING bumetanide 2 mg oral tablet 07/13/2018 TAKE 1 TABLET BY MOUTH THREE TIMES DAILY amlodipine 2.5 mg oral tablet 07/13/2018 TAKE 1 TABLET BY MOUTH EVERY MORNING metolazone 5 mg oral tablet 07/13/2018 TAKE 1 TABLET BY MOUTH EVERY MORNING carvedilol 25 mg oral tablet 07/13/2018 TAKE 1 TABLET BY MOUTH TWICE DAILY atorvastatin 80 mg oral tablet 07/13/2018 TAKE 1 TABLET BY MOUTH AT BEDTIME pantoprazole 40 mg oral tablet,delayed release (DR/EC) 07/13/2018 TAKE 1 TABLET BY MOUTH TWICE DAILY Lyrica 75 mg oral capsule 07/13/2018 TAKE 1 CAPSULE BY MOUTH EVERY MORNING calcium acetate 667 mg oral tablet 07/13/2018 TAKE 2 TABLETS BY MOUTH THREE TIMES DAILY WITH MEALS Name Start Date Expiration Date SIG Comments [...] use of insulin Active 08/27/2017 History of [place] (myocardial infarction) Active 08/27/2017 Smoker Active 08/27/2017 Vital Signs Date Time BP-Sys(mm[Hg] BP-Polly(mm[Hg]) HR(bpm) RR(rpm) Temp WT HT HC BMI BSA BMI Percentile O2 Sat(%) 07/28/2018 8:25:00 AM 136 mmHg 64 mmHg [...] 02/24/2018 12:00 AM COMPREHEN METABOLIC PANEL Returned 05/27/2018 12:00 AM COMPLETE CBC W/AUTO [...] current use of insulin 08/27/2017 History of [place] (myocardial infarction) 08/27/2017 Smoker 08/27/2017 Cardiomyopathy Diabetes mellitus due to underlying condition with diabetic polyneuropathy Aug 13 2017 2:49PM Diabetes mellitus due to underlying condition with hyperglycemia Aug 13 2017 2:49PM assisted (current) use of insulin Aug 13 2017 2:49PM Smoker Aug 13 2017 2:49PM Noncompliance w/medication treatment due to intermit use of medication Aug 13 2017 2:49PM Mixed hyperlipidemia Aug 13 2017 2:49PM Type 2 diabetes mellitus with other specified complication Aug 13 2017 2: 49PM Hyperlipidemia, unspecified Aug 13 2017 2:49PM Essential hypertension Aug 13 2017 2:49PM History of [place] (myocardial infarction) Aug 13 2017 2:49PM Chronic [...] systolic heart failure Jul 28 2018 8:28AM Payers Insurance Name Company Name Plan Name Plan Number Policy Number Policy Group Number Start Date Medicare RHC Medicare RHC [id number] N/A [place] 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 [id number] N/A Medicare Part A Medicare - Lab/Xray [id number] N/A Medicare Part B Medicare Of [place] [id number] N/A [place] Medical Assistance Program [place] Medical Assistance Prog [id number] N/A Medicare Part B Medicare Of [place] [id number] N/A History of Encounters Visit Date Visit Type Provider 07/28/2018 Office visit Dusty Hill MD 06/25/2018 Office visit Dusty Hill MD 05/27/2018 Office visit Dusty Hill MD 04/26/2018 Hospital Brenden Frost DO 04/24/2018 Hospital Eleazar Rincon MD 04/24/2018 [facility] Swapna Ferguson MD 04/19/2018 Office visit Dusty Hill MD 04/10/2018 [facility] Swapna Ferguson MD 04/10/2018 [facility] Brenden Frost DO 04/07/2018 [facility] Eleazar Rincon MD 04/06/2018 [facility] Swapna Ferguson MD 02/10/2018 Office visit Dusty Hill MD 02/09/2018 Hospital Swapna Ferguson MD 02/03/2018 Office visit Dusty Hill MD 01/20/2018 Hospital Swapna Ferguson MD 01/08/2018 [facility] Matt Chappell MD 08/13/2017 Office visit MARK JACKSON 07/25/2017 Hospital Swapna Ferguson MD 12/30/2016 [facility] Ermias Dooley MD 12/29/2016 [facility] Swapna Ferguson MD
--- OUTSIDE RECORDS SUMMARY | 2019-01-13 12:59 | XMS REPORT ---
Author Author Dusty Hill [facility] Address [address] [place] [id number] Care Team Providers Care Core Winder Machine Operator Name Role Phone Dusty Hill PCP Dusty [...] BY MOUTH THREE TIMES DAILY WITH MEALS Lyrica 75 mg oral capsule 09/24/2018 TAKE 1 CAPSULE BY MOUTH EVERY MORNING Zofran 4 mg oral tablet 10/19/2018 take 1 tablet every 8hr as needed for n/ v [place] 7.5-325 mg oral tablet 10/21/2018 take 1 tablet by oral route every 6 hours as needed for pain Name Start Date Expiration Date SIG Comments [...] use of insulin Active 08/27/2017 History of [place] (myocardial infarction) Active 08/27/2017 Smoker Active 08/27/2017 Vital Signs Date Time BP-Sys(mm[Hg] BP-Polly(mm[Hg]) HR(bpm) RR(rpm) Temp WT HT HC BMI BSA BMI Percentile O2 Sat(%) 10/21/2018 8:13:00 AM 130 mmHg 82 mmHg 80 bpm 18 rpm 98.1 F 149.375 lbs 66 in 24.1095 kg/m 1.7763 m 96 % 07/28/2018 8:25:00 AM 136 mmHg 64 mmHg 70 bpm 16 rpm 97.9 F 169 lbs 66 in 27.28 kg/m2 1.89 m2 98 % 06/25/2018 10:42:00 AM 122 mmHg 60 mmHg 70 bpm 16 rpm 98.1 F 161 lbs 66 in 25.9858 kg/m 1.8441 m 97 % 05/27/2018 10:30:00 AM 118 mmHg 74 mmHg 66 bpm 18 rpm 98.6 F 155.25 lbs 63 in 27.50 kg/m2 1.77 m2 99 % 04/19/2018 10:22:00 AM 128 mmHg 70 mmHg 71 bpm 18 rpm 98.8 F 159 lbs 63 in 28.1653 kg/m 1.7905 m 97 % 02/10/2018 10:59:00 AM 130 mmHg 62 mmHg 78 bpm 18 rpm 97.9 F 63 in 95 % 02/03/2018 10:23:00 AM 110 mmHg 64 mmHg 67 bpm 16 rpm 97.9 F 138 lbs 63 in 24.4454 kg/m 1.6681 m 94 % 08/13/2017 2:49:00 PM 124 mmHg 80 mmHg 80 bpm 16 rpm 98 F 245 lbs 63 in 43.3994 kg/m 2.22 m2 98 % Social History Name [...] current use of insulin 08/27/2017 History of [place] (myocardial infarction) 08/27/2017 Smoker 08/27/2017 Cardiomyopathy Diabetes mellitus due to underlying condition with diabetic polyneuropathy Aug 13 2017 2:49PM Diabetes mellitus due to underlying condition with hyperglycemia Aug 13 2017 2:49PM alf (current) use of insulin Aug 13 2017 2:49PM Smoker Aug 13 2017 2:49PM Noncompliance w/medication treatment due to intermit use of medication Aug 13 2017 2:49PM Mixed hyperlipidemia Aug 13 2017 2:49PM Type 2 diabetes mellitus with other specified complication Aug 13 2017 2: 49PM Hyperlipidemia, unspecified Aug 13 2017 2:49PM Essential hypertension Aug 13 2017 2:49PM History of [place] (myocardial infarction) Aug 13 2017 2:49PM Chronic [...] on renal dialysis Oct 21 2018 8:15AM Payers Insurance Name Company Name Plan Name Plan Number Policy Number Policy Group Number Start Date Medicare RHC Medicare RHC [id number] Thursday, 2015 [place] Online Affiliate Marketing Manager Prog - RHC [place] [employer]ate Marketing Manager Prog - RHC [id number] N/A [place] Medical Assistance Program [place] Medical Assistance Prog [id number] N/A Medicare Part B Medicare Of [place] [id number] N/A Medicare RHC Medicare RHC [id number] N/A Medicare Part A Medicare - Lab/Xray [id number] N/A Medicare Part B Medicare Of [place] [id number] N/A History of Encounters Visit Date Visit Type Provider 10/21/2018 Office visit Dusty Hill MD 07/28/2018 Office visit Dusty Hill MD 06/25/2018 Office visit Dusty Hill MD 05/27/2018 Office visit Dusty Hill MD 04/26/2018 [facility] 04/24/2018 [facility] Swapna Ferguson MD 04/19/2018 Office visit Dusty Hill MD 04/10/2018 [facility] Swapna Ferguson MD 04/10/2018 [facility] 04/07/2018 [facility] 04/06/2018 [facility] Swapna Ferguson MD 02/26/2018 [facility] Swapna Ferguson MD 02/10/2018 Office visit Dusty Hill MD 02/09/2018 [facility] Swapna Ferguson MD 02/03/2018 Office visit Dusty Hill MD 01/20/2018 [facility] Swapna Ferguson MD 01/08/2018 [facility] Matt Chappell MD 08/13/2017 Office visit MARK JACKSON 07/25/2017 [facility] Swapna Ferguson MD 12/30/2016 [facility] Ermias Dooley MD 12/29/2016 Danny Ferguson MD
--- OUTSIDE RECORDS SUMMARY | 2019-01-13 13:00 | XMS REPORT ---
Author Author Dusty Hill [facility] Address [address] [place], [place] [id number] Care Team Providers Care Spice Cleaner Name Role Phone Dusty Hill PCP Dusty [...] 05/19/2018 INJECT 15 UNITS SUBCUTANEOUS AT BEDTIME calcium acetate 667 mg oral tablet 05/19/2018 TAKE 2 CAPSULES BY MOUTH THREE TIMES DAILY WITH MEALS Humalog U-100 Insulin 100 unit/mL subcutaneous solution 05/19/2018 USE PER SLIDING SCALE metolazone 5 mg oral tablet 05/19/2018 TAKE 1 TABLET BY MOUTH EVERY MORNING carvedilol 25 mg oral tablet 05/19/2018 TAKE 1 TABLET BY MOUTH TWICE DAILY amlodipine 2.5 mg oral tablet 05/19/2018 TAKE 1 TABLET BY MOUTH EVERY MORNING bumetanide 2 mg oral tablet 05/19/2018 TAKE 1 TABLET BY MOUTH THREE TIMES DAILY atorvastatin 80 mg oral tablet 05/19/2018 TAKE 1 TABLET BY MOUTH AT BEDTIME pantoprazole 40 mg oral tablet,delayed release (DR/EC) 05/20/2018 TAKE 1 TABLET BY MOUTH TWICE DAILY ferrous gluconate 236 mg (27 mg iron) oral tablet take 1 tablet by oral route daily [place] 5-325 mg oral tablet 05/27/2018 One PO BID, and q 4 hours prn Januvia 50 mg oral tablet 06/11/2018 TAKE 1/2 TABLET BY MOUTH EVERY MORNING Lyrica 75 mg oral capsule 06/11/2018 TAKE 1 CAPSULE BY MOUTH EVERY MORNING amoxicillin 500 mg oral capsule 06/25/2018 07/02/2018 take 1 capsule (500 mg ) by oral route every 12 hours for 7 days Name Start Date Expiration Date SIG Comments pioglitazone 30 mg oral tablet 08/14/2017 Levemir 100 unit/mL subcutaneous solution 08/13/2017 09/12/2017 inject by subcutaneous route per prescriber's instructions. Insulin dosing requires individualization. for 30 days Discontinued Name Start Date Discontinued Date [...] use of insulin Active 08/27/2017 History of [place] (myocardial infarction) Active 08/27/2017 Smoker Active 08/27/2017 Vital Signs Date Time BP-Sys(mm[Hg] BP-Polly(mm[Hg]) HR(bpm) RR(rpm) Temp WT HT HC BMI BSA BMI Percentile O2 Sat(%) 06/25/2018 10:42:00 AM 122 mmHg 60 mmHg [...] current use of insulin 08/27/2017 History of [place] (myocardial infarction) 08/27/2017 Smoker 08/27/2017 Cardiomyopathy Diabetes mellitus due to underlying condition with diabetic polyneuropathy Aug 13 2017 2:49PM Diabetes mellitus due to underlying condition with hyperglycemia Aug 13 2017 2:49PM senior care (current) use of insulin Aug 13 2017 2:49PM Smoker Aug 13 2017 2:49PM Noncompliance w/medication treatment due to intermit use of medication Aug 13 2017 2:49PM Mixed hyperlipidemia Aug 13 2017 2:49PM Type 2 diabetes mellitus with other specified complication Aug 13 2017 2: 49PM Hyperlipidemia, unspecified Aug 13 2017 2:49PM Essential hypertension Aug 13 2017 2:49PM History of [place] (myocardial infarction) Aug 13 2017 2:49PM Chronic [...] recurrence not specified Jun 25 2018 10:45AM Payers Insurance Name Company Name Plan Name Plan Number Policy Number Policy Group Number Start Date Medicare RHC Medicare RHC [id number] N/A [place] Program [place] Prog [id number] N/A Medicare Part B Medicare Of [place] [id number] N/A Medicare Part A Medicare - Lab/Xray [id number] N/A Medicare Part B Medicare Of [place] [id number] N/A History of Encounters Visit Date Visit Type Provider 06/25/2018 Office visit Dusty Hill MD 05/27/2018 Office visit Dusty Hill MD 04/26/2018 [facility] Brenden Frost DO 04/24/2018 [facility] Eleazar Rincon MD 04/24/2018 [facility] Swapna Ferguson MD 04/19/2018 Office visit Dusty Hill MD 04/10/2018 [facility] Swapna Ferguson MD 04/10/2018 [facility] Brenden Frost DO 04/07/2018 [facility] Eleazar Rincon MD 04/06/2018 [facility] Swapna Ferguson MD 02/10/2018 Office visit Dusty Hill MD 02/09/2018 [facility] Swapna Ferguson MD 02/03/2018 Office visit Dusty Hill MD 01/20/2018 [facility] Swapna Ferguson MD 01/08/2018 [facility] Matt Chappell MD 08/13/2017 Office visit MARK JACKSON 07/25/2017 [facility] Swapna Ferguson MD 12/30/2016 [facility] Ermias Dooley MD 12/29/2016 [facility] Swapna Ferguson MD
--- OUTSIDE RECORDS SUMMARY | 2019-01-13 13:00 | XMS REPORT ---
Author Author Dusty Hill [facility] Address [address] [place], [place] [id number] Care Team Providers Care Toys And Games Hand Finisher Name Role Phone Dusty Hill PCP Dusty Hill PreferredProvider Allergies and Adverse Reactions Name Reaction Notes SULFA (SULFONAMIDES) Plan of Treatment Planned Activity Comments Planned Date Planned Time Plan/Goal CBC With Auto Differential 04/19/2018 12:00 AM CMP 04/19/2018 12:00 AM Vitamin B12 04/19/2018 12:00 AM Iron measurement 04/19/2018 12:00 AM CBC With Auto Differential 05/27/2018 12:00 AM CMP 05/27/2018 12:00 AM BNP 05/27/2018 12:00 AM Medications Active Name Start Date [...] TAKE 1 TABLET BY MOUTH AT BEDTIME Lyrica 75 mg oral capsule 05/19/2018 TAKE 1 CAPSULE BY MOUTH EVERY MORNING Januvia 50 mg oral tablet 05/19/2018 TAKE 1/2 TABLET BY MOUTH EVERY MORNING pantoprazole 40 mg oral tablet,delayed release (DR/EC) 05/20/2018 TAKE 1 TABLET BY MOUTH TWICE DAILY ferrous gluconate 236 mg (27 mg iron) oral tablet take 1 tablet by oral route daily [place] 5-325 mg oral tablet 05/27/2018 One PO BID, and q 4 hours prn Name Start Date Expiration Date SIG Comments [...] use of insulin Active 08/27/2017 History of [place] (myocardial infarction) Active 08/27/2017 Smoker Active 08/27/2017 Vital Signs Date Time BP-Sys(mm[Hg] BP-Polly(mm[Hg]) HR(bpm) RR(rpm) Temp WT HT HC BMI BSA BMI Percentile O2 Sat(%) 05/27/2018 10:30:00 AM 118 mmHg 74 mmHg [...] 02/24/2018 12:00 AM COMPREHEN METABOLIC PANEL Returned Results Summary Not available. History Of Immunizations Not available. History of Past Illness Name Date of Onset Comments Diabetes Heart Attack Mixed hyperlipidemia 08/27/2017 Essential hypertension 08/27/2017 Diabetes mellitus due to underlying condition with hyperglycemia, with long- term current use of insulin 08/27/2017 History of [place] (myocardial infarction) 08/27/2017 Smoker 08/27/2017 Cardiomyopathy Diabetes mellitus due to underlying condition with diabetic polyneuropathy Aug 13 2017 2:49PM Diabetes mellitus due to underlying condition with hyperglycemia Aug 13 2017 2:49PM half-way (current) use of insulin Aug 13 2017 2:49PM Smoker Aug 13 2017 2:49PM Noncompliance w/medication treatment due to intermit use of medication Aug 13 2017 2:49PM Mixed hyperlipidemia Aug 13 2017 2:49PM Type 2 diabetes mellitus with other specified complication Aug 13 2017 2: 49PM Hyperlipidemia, unspecified Aug 13 2017 2:49PM Essential hypertension Aug 13 2017 2:49PM History of [place] (myocardial infarction) Aug 13 2017 2:49PM Chronic [...] 2018 10:33AM Anemia May 27 2018 10:33AM Payers Insurance Name Company Name Plan Name Plan Number Policy Number Policy Group Number Start Date Medicare Part B Medicare Of [place] [id number] N/A [place] Medical Assistance [facility] [place] Medical Assistance Prog [id number] N/A Medicare Part B Medicare Of [place] [id number] N/A Medicare RHC Medicare RHC [id number] N/A Medicare Part A Medicare - Lab/Xray [id number] N/A History of Encounters Visit Date Visit Type Provider 05/27/2018 Office visit Dusty Hill MD 04/26/2018 [facility] Brenden Frost DO 04/24/2018 [facility] Eleazar Rincon MD 04/19/2018 Office visit Dusty Hill MD 04/10/2018 [facility] Brenden Frost DO 04/07/2018 [facility] Eleazar Rincon MD 04/06/2018 [facility] Swapna Ferguson MD 02/10/2018 Office visit Dusty Hill MD 02/09/2018 [facility] Swapna Ferguson MD 02/03/2018 Office visit Dusty Hill MD 01/20/2018 [facility] Swapna Ferguson MD 01/08/2018 [facility] Matt Chappell MD 08/13/2017 Office visit MARK JACKSON 07/25/2017 [facility] Swapna Ferguson MD 12/30/2016 [facility] Ermias Dooley MD 12/29/2016 [facility] Swapna Ferguson MD
--- OUTSIDE RECORDS SUMMARY | 2019-01-13 13:00 | XMS REPORT ---
Author Author Dusty Hill [facility] Address [address] [place], [place] [id number] Care Team Providers Care Technical Marketing Consultant Name Role Phone Dusty Hill PCP Dusty [...] (81 mg) by oral route once daily metformin 1,000 mg oral tablet 03/22/2018 TAKE 1 TABLET BY MOUTH DAILY [place] 5-325 mg oral tablet 04/05/2018 take 1 tablet by oral route 2 times a day furosemide 80 mg oral tablet 04/16/2018 TAKE 1 TABLET BY MOUTH DAILY pantoprazole 40 mg oral tablet,delayed release (DR/EC) 04/16/2018 TAKE 1 TABLET BY MOUTH TWICE DAILY calcium acetate 667 mg oral tablet 04/16/2018 TAKE 2 CAPSULES BY MOUTH BEFORE EACH MEAL Januvia 50 mg oral tablet 04/16/2018 TAKE 1/2 TABLET BY MOUTH DAILY amlodipine 10 mg oral tablet 04/16/2018 TAKE 1 TABLET BY MOUTH DAILY carvedilol 6.25 mg oral tablet 04/16/2018 TAKE 1 TABLET BY MOUTH TWICE DAILY atorvastatin 80 mg oral tablet 04/16/2018 TAKE 1 TABLET BY MOUTH DAILY Lyrica 75 mg oral capsule 04/16/2018 TAKE 1 CAPSULE BY MOUTH DAILY Name Start Date Expiration Date SIG Comments [...] BY MOUTH THREE TIMES DAILY WITH MEALS Problem List Description Status Onset Mixed hyperlipidemia Active 08/27/2017 Essential hypertension Active 08/27/2017 Diabetes mellitus due to underlying condition with hyperglycemia, with long- term current use of insulin Active 08/27/2017 History of [place] (myocardial infarction) Active 08/27/2017 Smoker Active 08/27/2017 Vital Signs Date Time BP-Sys(mm[Hg] BP-Polly(mm[Hg]) HR(bpm) RR(rpm) Temp WT HT HC BMI BSA BMI Percentile O2 Sat(%) 04/19/2018 10:22:00 AM 128 mmHg 70 mmHg [...] current use of insulin 08/27/2017 History of [place] (myocardial infarction) 08/27/2017 Smoker 08/27/2017 Cardiomyopathy Diabetes mellitus due to underlying condition with diabetic polyneuropathy Aug 13 2017 2:49PM Diabetes mellitus due to underlying condition with hyperglycemia Aug 13 2017 2:49PM care home (current) use of insulin Aug 13 2017 2:49PM Smoker Aug 13 2017 2:49PM Noncompliance w/medication treatment due to intermit use of medication Aug 13 2017 2:49PM Mixed hyperlipidemia Aug 13 2017 2:49PM Type 2 diabetes mellitus with other specified complication Aug 13 2017 2: 49PM Hyperlipidemia, unspecified Aug 13 2017 2:49PM Essential hypertension Aug 13 2017 2:49PM History of [place] (myocardial infarction) Aug 13 2017 2:49PM Chronic [...] chronic kidney disease Apr 19 2018 10:23AM Payers Insurance Name Company Name Plan Name Plan Number Policy Number Policy Group Number Start Date Medicare Part B Medicare Of [place] [id number] N/A [place] Medical [place] Program [place] Prog [id number] N/A Medicare Part B Medicare Of [place] [id number] N/A Medicare RHC Medicare RHC [id number] N/A Medicare Part A Medicare - Lab/Xray [id number] N/A History of Encounters Visit Date Visit Type Provider 04/19/2018 Office visit Dusty Hill MD 02/10/2018 Office visit Dusty Hill MD 02/09/2018 [facility] Swapna Ferguson MD 02/03/2018 Office visit Dusty Hill MD 01/20/2018 [facility] Swapna Ferguson MD 01/08/2018 [facility] Matt Chappell MD 08/13/2017 Office visit MARK JACKSON 07/25/2017 [facility] Swapna Ferguson MD 12/30/2016 [facility] Ermias Dooley MD 12/29/2016 [facility] Swapna Ferguson MD
--- OUTSIDE RECORDS SUMMARY | 2019-01-13 13:01 | XMS REPORT ---
Author Author MARK ALFARO [facility] Address [address] [place], [place] [id number] Care Team Providers Care Tape Recorder Mechanic Name Role Phone MARK ALFARO PCP MARK ALFARO PreferredProvider Allergies and Adverse Reactions Name Reaction Notes SULFA (SULFONAMIDES) Plan of Treatment Not available. Medications Active Name Start Date Estimated Completion Date SIG Comments glimepiride 2 mg oral tablet 08/14/2017 pioglitazone 30 mg oral tablet 08/14/2017 metformin 1,000 mg oral tablet 07/01/2017 gabapentin 100 mg oral capsule 07/01/2017 atorvastatin 80 mg oral tablet 12/30/2016 lisinopril 10 mg oral tablet 12/30/2016 Levemir 100 unit/mL subcutaneous solution 08/13/2017 09/12/2017 inject by subcutaneous route per prescriber's instructions. Insulin dosing requires individualization. for 30 days Problem List Description Status Onset Mixed hyperlipidemia Active 08/27/2017 Essential hypertension Active 08/27/2017 Diabetes mellitus due to underlying condition with hyperglycemia, with long- term current use of insulin Active 08/27/2017 History of [place] (myocardial infarction) Active 08/27/2017 Smoker Active 08/27/2017 Vital Signs Date Time BP-Sys(mm[Hg] BP-Polly(mm[Hg]) HR(bpm) RR(rpm) Temp WT HT HC BMI BSA BMI Percentile O2 Sat(%) 08/13/2017 2:49:00 PM 124 mmHg 80 mmHg 80 bpm 16 rpm 98 F 245 lbs 63 in 43.40 kg/m2 2.22 m2 98 % Social History Name Description Comments Tobacco Current every day smoker Alcohol Former Uses seatbelts History of Procedures Not available. Results Summary Not available. History Of Immunizations Not available. History of Past Illness Name Date of Onset Comments Diabetes Heart Attack Mixed hyperlipidemia 08/27/2017 Essential hypertension 08/27/2017 Diabetes mellitus due to underlying condition with hyperglycemia, with long- term current use of insulin 08/27/2017 History of [place] (myocardial infarction) 08/27/2017 Smoker 08/27/2017 Diabetes mellitus due to underlying condition with diabetic polyneuropathy Aug 13 2017 2:49PM Diabetes mellitus due to underlying condition with hyperglycemia Aug 13 2017 2:49PM [place] (current) use of insulin Aug 13 2017 2:49PM Smoker Aug 13 2017 2:49PM Noncompliance w/medication treatment due to intermit use of medication Aug 13 2017 2:49PM Mixed hyperlipidemia Aug 13 2017 2:49PM Type 2 diabetes mellitus with other specified complication Aug 13 2017 2: 49PM Hyperlipidemia, unspecified Aug 13 2017 2:49PM Essential hypertension Aug 13 2017 2:49PM History of [place] (myocardial infarction) Aug 13 2017 2:49PM Payers Insurance Name Company Name Plan Name Plan Number Policy Number Policy Group Number Start Date Medicare RHC Medicare RHC [id number] N/A [place] Medical Assistance [facility] Prog [id number] N/A Medicare Part B Medicare Of [place] [id number] N/A Medicare Part A Medicare - Lab/Xray [id number] N/A History of Encounters Visit Date Visit Type Provider 08/13/2017 Office visit MARK JACKSON 07/25/2017 Hospital Swapna Ferguson MD 12/30/2016 [facility] Ermias Dooley MD 12/29/2016 [facility] Swapna Ferguson MD
--- OUTSIDE RECORDS SUMMARY | 2019-01-13 13:01 | XMS REPORT ---
Author Author Dusty Hill [facility] Address [address] [place], [place] [id number] Care Team Providers Care Supervisor Slate Splitting Name Role Phone Dusty Hill PCP Dusty Hill PreferredProvider Allergies and Adverse Reactions Name Reaction Notes SULFA (SULFONAMIDES) Plan of Treatment Planned Activity Comments Planned Date Planned Time Plan/Goal Hematocrit 02/22/2018 12:00 AM HEMOGLOBIN 02/22/2018 12:00 AM Medications Active Name Start Date Estimated Completion Date SIG Comments glimepiride 2 mg oral tablet 08/14/2017 metformin 1,000 mg oral tablet 07/01/2017 gabapentin 100 mg oral capsule 07/01/2017 lisinopril 10 mg oral tablet 12/30/2016 Coreg 12.5 mg oral tablet take 1 tablet (12.5 mg) by oral route 2 times per day with food Humalog U-100 Insulin 100 unit/mL subcutaneous solution inject by subcutaneous route per sliding scale Lasix 80 mg oral tablet take 1 tablet (80 mg) by oral route 2 times per day PhosLo oral give 1334mg by mouth w/meals for NA aspirin 81 mg oral tablet,delayed release (DR/EC) take 1 tablet (81 mg) by oral route once daily atorvastatin 80 mg oral tablet 02/04/2018 TAKE 1 TABLET BY MOUTH DAILY calcium acetate 667 mg oral capsule 02/04/2018 TAKE 2 CAPSULES BY MOUTH THREE TIMES DAILY WITH MEALS furosemide 80 mg oral tablet 02/04/2018 TAKE 1 TABLET BY MOUTH AT 0800 AND 1400 [place] 5-325 mg oral tablet 02/10/2018 take 1 tablet by oral route 2 times a day carvedilol 12.5 mg oral tablet 02/22/2018 TAKE 1 TABLET BY MOUTH TWICE DAILY WITH MEALS Name Start Date Expiration [...] use of insulin Active 08/27/2017 History of [place] (myocardial infarction) Active 08/27/2017 Smoker Active 08/27/2017 Vital Signs Date Time BP-Sys(mm[Hg] BP-Polly(mm[Hg]) HR(bpm) RR(rpm) Temp WT HT HC BMI BSA BMI Percentile O2 Sat(%) 02/10/2018 10:59:00 AM 130 mmHg 62 mmHg 78 bpm 18 rpm 97.9 F 63 in 95 % 02/03/2018 10:23:00 AM 110 mmHg 64 mmHg 67 bpm 16 rpm 97.9 F 138 lbs 63 in 24.45 kg/m2 1.67 m2 94 % 08/13/2017 2:49:00 PM 124 mmHg 80 mmHg 80 bpm 16 rpm 98 F 245 lbs 63 in 43.3994 kg/m 2.2226 m 98 % Social History Name Description Comments [...] current use of insulin 08/27/2017 History of [place] (myocardial infarction) 08/27/2017 Smoker 08/27/2017 Cardiomyopathy Diabetes mellitus due to underlying condition with diabetic polyneuropathy Aug 13 2017 2:49PM Diabetes mellitus due to underlying condition with hyperglycemia Aug 13 2017 2:49PM intermediate manager (current) use of insulin Aug 13 2017 2:49PM Smoker Aug 13 2017 2:49PM Noncompliance w/medication treatment due to intermit use of medication Aug 13 2017 2:49PM Mixed hyperlipidemia Aug 13 2017 2:49PM Type 2 diabetes mellitus with other specified complication Aug 13 2017 2: 49PM Hyperlipidemia, unspecified Aug 13 2017 2:49PM Essential hypertension Aug 13 2017 2:49PM History of [place] (myocardial infarction) Aug 13 2017 2:49PM Chronic systolic heart failure Feb 03 2018 10:28AM Kidney failure Feb 03 2018 10:28AM Chronic systolic heart failure Feb 10 2018 11:03AM Stage 3 chronic kidney disease Feb 10 2018 11:03AM Anemia Feb 22 2018 1:28PM Payers Insurance Name Company Name Plan Name Plan Number Policy Number Policy Group Number Start Date Medicare Part B Medicare Of [place] [id number] N/A [place] Medical Assistance [facility] Medical Assistance Prog [id number] N/A Medicare Part B Medicare Of [place] [id number] N/A Medicare RHC Medicare RHC [id number] N/A Medicare Part A Medicare - Lab/Xray [id number] N/A History of Encounters Visit Date Visit Type Provider 02/10/2018 Office visit Dusty Hill MD 02/09/2018 Hospital Swapna Ferguson MD 02/03/2018 Office visit Dusty Hill MD 01/20/2018 [facility] Swapna Ferguson MD 01/08/2018 [facility] Matt Chappell MD 08/13/2017 Office visit MARK JACKSON 07/25/2017 Hospital Swapna Ferguson MD 12/30/2016 [facility] Ermias Dooley MD 12/29/2016 [facility] Swapna Ferguson MD
--- OUTSIDE RECORDS SUMMARY | 2019-01-13 13:01 | XMS REPORT | Continuity of Care Document ---
Demographics Preferred Language Unknown Marital Status Unknown Gnosticist Affiliation Unknown Race Unknown Ethnic Group Unknown Author Organization Unknown Address Unknown Allergies Active Description Code Type Severity Reaction Onset Reported/Identified Relationship to Patient Clinical Status Yes No Known Environmental Allergies [id number] N/A N/A Yes No Known Food Allergies [id number] N/A N/A Yes SULFA (sulfonamide) [id number] CLASS N/A N/A Medications There is no data. Problems Date Dx Coded Attending Type Code Diagnosis Diagnosed By 07/25/2017 P E118 Type 2 diabetes mellitus with unspecified complications 07/25/2017 S R531 Weakness 07/25/2017 S [id number] Contusion of right knee, initial encounter 07/25/2017 S [id number] Fall on same level from slipping, tripping and stumbling without subsequent striking against object, initial encounter 07/25/[address] in single-family (private) house as the place of occurrence of the external cause 07/25/2017 S Z720 Tobacco use 11/30/2018 P J111 Influenza due to unidentified influenza virus with other respiratory manifestations Procedures There is no data. Results There is no data. Encounters ACCT No. Visit Date/Time Discharge Status Pt. Type Provider Facility Loc./Unit Complaint [id number] 12/15/2018 11:35:58 Document Registration [id number] 12/06/2018 16:48:00 Document Registration [id number] 12/06/2018 16:08:01 Document Registration [id number] 12/03/2018 06:36:42 Document Registration [id number] 12/01/2018 06:38:19 Document Registration [id number] 12/01/2018 05:59:54 Document Registration [id number] 11/30/2018 15:55:52 Document Registration [id number] 09/30/2018 01:42:44 Document Registration [id number] 09/29/2018 19:27:29 Document Registration [id number] 09/29/2018 18:59:57 Document Registration [id number] 09/21/2018 07:44:45 Document Registration [id number] 09/02/2018 10:51:22 Document Registration [id number] 09/02/2018 10:43:08 Document Registration [id number] 08/29/2018 21:09:30 Document Registration [id number] 08/29/2018 21:05:29 Document Registration [id number] 08/27/2018 16:00:03 Document Registration [id number] 08/21/2018 23:39:28 Document Registration [id number] 08/16/2018 07:20:26 Document Registration [id number] 08/13/2018 19:12:41 Document Registration [id number] 08/13/2018 10:59:58 Document Registration [id number] 08/12/2018 10:54:38 Document Registration [id number] 08/09/2018 07:54:25 Document Registration [id number] 08/02/2018 07:09:23 Document Registration [id number] 06/14/2018 07:33:58 Document Registration [id number] 05/27/2018 11:06:32 Document Registration [id number] 05/24/2018 07:49:11 Document Registration [id number] 05/07/2018 03:44:48 Document Registration [id number] 04/24/2018 13:57:04 Document Registration [id number] 04/24/2018 13:43:32 Document Registration [id number] 04/19/2018 06:59:35 Document Registration [id number] 04/06/2018 20:00:21 Document Registration [id number] 04/06/2018 19:54:42 Document Registration [id number] 03/08/2018 07:08:12 Document Registration [id number] 02/26/2018 17:40:39 Document Registration [id number] 02/26/2018 17:03:58 Document Registration [id number] 02/24/2018 09:26:01 Document Registration [id number] 02/22/2018 07:11:30 Document Registration [id number] 02/17/2018 16:08:31 Document Registration [id number] 02/17/2018 08:44:47 Document Registration [id number] 02/10/2018 10:53:01 Document Registration [id number] 02/09/2018 18:48:16 Document Registration [id number] 02/09/2018 18:29:14 Document Registration [id number] 07:19:45 Document Registration [id number] 02/04/2018 08:13:01 Document Registration [id number] 02/02/2018 15:46:31 Document Registration [id number] 02/02/2018 11:50:09 Document Registration [id number] 01/11/2018 12:01:11 Document Registration [id number] 01/11/2018 11:53:48 Document Registration [id number] 01/07/2018 20:57:26 Document Registration [id number] 01/07/2018 20:03:11 Document Registration [id number] 07/25/2017 20:17:48 Document Registration [id number] 07/25/2017 20:06:57 Document Registration [id number] 07/01/2017 15:21:38 Document Registration [id number] 07/01/2017 14:54:55 Document Registration [id number] 12/09/2018 16:28:12 12/09/2018 23:59:59 CLS Outpatient Dusty Hill [id number] 10/21/2018 09:08:05 10/21/2018 23:59:59 CLS Outpatient Dusty Hill [id number] 08/09/2018 14:14:36 08/09/2018 23:59:59 CLS Outpatient Swapna Ferguson [id number] 07/28/2018 09:17:45 07/28/2018 23:59:59 CLS Outpatient Dusty Hill [id number] 06/25/2018 16:46:20 06/25/2018 23:59:59 CLS Outpatient Dusty Hill [id number] 06/07/2018 12:49:09 06/07/2018 23:59:59 CLS Outpatient Swapna Ferguson [id number] 06/01/2018 16:58:40 06/01/2018 23:59:59 CLS Outpatient Swapna Ferguson [id number] 05/27/2018 11:12:49 05/27/2018 23:59:59 CLS Outpatient Dusty Hill [id number] 05/19/2018 16:32:57 05/19/2018 23:59:59 CLS Outpatient Eleazar Rincon [id number] 05/14/2018 16:06:22 05/14/2018 23:59:59 CLS Outpatient Brenden Frost [id number] 05/06/2018 16:38:33 05/06/2018 23:59:59 CLS Outpatient Swapna Ferguson [id number] 02/19/2018 16:43:51 02/19/2018 23:59:59 CLS Outpatient Swapna Ferguson [id number] 02/10/2018 17:08:11 02/10/2018 23:59:59 CLS Outpatient Swapna Ferguson [id number] 02/10/2018 11:35:39 02/10/2018 23:59:59 CLS Outpatient Dusty Hill [id number] 02/03/2018 10:52:55 02/03/2018 23:59:59 CLS Outpatient Dusty Hill [id number] 01/29/2018 14:37:51 01/29/2018 23:59:59 CLS Outpatient Eleazar Rincon [id number] 08/25/2017 15:59:37 08/25/2017 23:59:59 CLS Outpatient Swapna Ferguson [id number] 08/13/2017 15:12:35 08/13/2017 23:59:59 CLS Outpatient MARK ALFARO [id number] 03/02/2017 11:43:47 03/02/2017 23:59:59 CLS Outpatient Swapna Ferguson [id number] 01/26/2017 10:01:16 01/26/2017 23:59:59 CLS Outpatient Ermias Dooley
--- OUTSIDE RECORDS SUMMARY | 2019-01-13 13:01 | XMS REPORT ---
Author Author Dusty Hill [facility] Address [address] [place] [id number] Care Team Providers Care Engraver Ornamental Design Name Role Phone Dusty Hill PCP Dusty [...] BY MOUTH THREE TIMES DAILY WITH MEALS carvedilol 12.5 mg oral tablet 02/04/2018 TAKE 1 TABLET BY MOUTH TWICE DAILY WITH MEALS furosemide 80 mg oral tablet 02/04/2018 TAKE 1 TABLET BY MOUTH AT 0800 AND 1400 [place] 5-325 mg oral tablet 02/10/2018 take 1 tablet by oral route 2 times a day Name Start Date Expiration Date SIG Comments [...] use of insulin Active 08/27/2017 History of [place] (myocardial infarction) Active 08/27/2017 Smoker Active 08/27/2017 [...] current use of insulin 08/27/2017 History of [place] (myocardial infarction) 08/27/2017 Smoker 08/27/2017 Cardiomyopathy Diabetes mellitus due to underlying condition with diabetic polyneuropathy Aug 13 2017 2:49PM Diabetes mellitus due to underlying condition with hyperglycemia Aug 13 2017 2:49PM FPC (current) use of insulin Aug 13 2017 2:49PM Smoker Aug 13 2017 2:49PM Noncompliance w/medication treatment due to intermit use of medication Aug 13 2017 2:49PM Mixed hyperlipidemia Aug 13 2017 2:49PM Type 2 diabetes mellitus with other specified complication Aug 13 2017 2: 49PM Hyperlipidemia, unspecified Aug 13 2017 2:49PM Essential hypertension Aug 13 2017 2:49PM History of [place] (myocardial infarction) Aug 13 2017 2:49PM Chronic systolic heart failure Feb 03 2018 10:28AM Kidney failure Feb 03 2018 10:28AM Chronic systolic heart failure Feb 10 2018 11:03AM Stage 3 chronic kidney disease Feb 10 2018 11:03AM Payers Insurance Name Company Name Plan Name Plan Number Policy Number Policy Group Number Start Date Medicare RHC Medicare RHC [id number] N/A [facility] Assistance [facility] Medical Assistance Prog [id number] N/A Medicare Part B Medicare Of [place] [id number] N/A Medicare Part A Medicare - Lab/Xray [id number] N/A History of Encounters Visit Date Visit Type Provider 02/10/2018 Office visit Dusty Hill MD 02/03/2018 Office visit Dusty Hill MD 01/20/2018 [facility] Swapna Ferguson MD 01/08/2018 [facility] Matt Chappell MD 08/13/2017 Office visit MARK JACKSON 07/25/2017 [facility] Swapna Ferguson MD 12/30/2016 [facility] Ermias Dooley MD 12/29/2016 [facility] Swapna Ferguson MD
--- OUTSIDE RECORDS SUMMARY | 2019-01-13 13:01 | XMS REPORT ---
Author Author Dusty Hill [facility] Address [address] [place] [id number] Care Team Providers Care Mechanical Assembly Technician Name Role Phone Dusty Hill PCP Dusty Hill PreferredProvider Allergies and Adverse Reactions Name Reaction Notes SULFA (SULFONAMIDES) Plan of Treatment Planned Activity Comments Planned Date Planned Time Plan/Goal CBC With Auto Differential 02/03/2018 12:00 AM CMP 02/03/2018 12:00 AM Chest x-ray, PA and lateral 02/03/2018 12:00 AM Medications Active Name Start Date Estimated Completion Date SIG Comments glimepiride 2 mg oral tablet 08/14/2017 metformin 1,000 mg oral tablet 07/01/2017 gabapentin 100 mg oral capsule 07/01/2017 atorvastatin 80 mg oral tablet 12/30/2016 lisinopril 10 mg oral tablet 12/30/2016 Coreg [...] (81 mg) by oral route once daily Name Start Date Expiration Date SIG Comments [...] use of insulin Active 08/27/2017 History of [place] (myocardial infarction) Active 08/27/2017 Smoker Active 08/27/2017 Vital Signs Date Time BP-Sys(mm[Hg] BP-Polly(mm[Hg]) HR(bpm) RR(rpm) Temp WT HT HC BMI BSA BMI Percentile O2 Sat(%) 02/03/2018 10:23:00 AM 110 mmHg 64 mmHg [...] current use of insulin 08/27/2017 History of [place] (myocardial infarction) 08/27/2017 Smoker 08/27/2017 Cardiomyopathy Diabetes mellitus due to underlying condition with diabetic polyneuropathy Aug 13 2017 2:49PM Diabetes mellitus due to underlying condition with hyperglycemia Aug 13 2017 2:49PM 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 Aug 13 2017 2:49PM Smoker Aug 13 2017 2:49PM Noncompliance w/medication treatment due to intermit use of medication Aug 13 2017 2:49PM Mixed hyperlipidemia Aug 13 2017 2:49PM Type 2 diabetes mellitus with other specified complication Aug 13 2017 2: 49PM Hyperlipidemia, unspecified Aug 13 2017 2:49PM Essential hypertension Aug 13 2017 2:49PM History of [place] (myocardial infarction) Aug 13 2017 2:49PM Chronic systolic heart failure Feb 03 2018 10:28AM Kidney failure Feb 03 2018 10:28AM Payers Insurance Name Company Name Plan Name Plan Number Policy Number Policy Group Number Start Date Medicare RHC Medicare [facility] [id number] N/A [place] [employer] [facility] [place] [employer] [place] Prog [id number] N/A Medicare Part B Medicare Of [place] [id number] N/A Medicare Part A Medicare - Lab/Xray [id number] N/A History of Encounters Visit Date Visit Type Provider 02/03/2018 Office visit Dusty Hill MD 01/08/2018 [facility] Matt Chappell MD 08/13/2017 Office visit MARK JACKSON 07/25/2017 [facility] Swapna Ferguson MD 12/30/2016 [facility] Ermias Dooley MD 12/29/2016 [facility] Swapna Ferguson MD
[2019-01-13 13:26] VITALS: BP 160/69
[2019-01-13] MEDS: LIDOCAINE 1% INJ 20 ML 20 ML VIAL INJ ONE (15:00)
--- NOTE | 2019-01-13 17:22 | Cardiology Post Procedure Note ---
Post-Procedure Note Physician (s)/Gum Machine Filler (s) Physician Ozzy LINN MD Pre-Procedure Diagnosis Pre-Procedure Diagnosis: end-stage renal disease, Central dialysis tunneled catheter removal Post-Procedure Note Procedure Start Date: January 13, 2019 Procedure Start Time: 14:30 Name of Procedure: Central dialysis tunneled catheter removal Findings/Procedure Note This is a 68-year-old patient with end-stage renal disease on hemodialysis and follows Dr Vu Linn in [facility]. He has a central dialysis tunneled venous catheter which requires removal. He was brought to the heart center after informed consent was taken. No evidence of infection, clotting or coagulopathy. The tunneled catheter is in the right upper chest area which was draped and prepped in the usual sterilized fashion. Lidocaine was given at the insertion site. Blunt dissection was done to remove any adhesions. The patient was At 30. Once the tunneled catheter was free of all adhesions, the patient was asked to do a Valsalva and hold his breath and in one quick motion the tunneled catheter was taken out and pressure done at the insertion site to achieve hemostasis. This was done for 5 minutes and hemostasis was confirmed. Wound dressing was done with Steri-Strips and bandage. All discharge instructions were given. Estimated blood loss (mL): 5 mL Contrast Amount: none Post-Procedure Diagnosis Post-operative diagnosis: End-stage renal disease, Central dialysis tunneled catheter removal Ozzy LINN MD January 13, 2019 5:22 pm
== END ==
LOC: CATH 12:54
PROVIDERS: ATTEND Internal Medicine Interventional Cardiology
DX: N18.6 End stage renal disease (principal); Z79.82 Long term (current) use of aspirin; Z79.899 Other long term (current) drug therapy; Z79.01 Long term (current) use of anticoagulants
CPT/HCPCS: 36415; 36589; 85610